=== PATIENT | female | born 1960 | race Caucasian/White ===

== ENCOUNTER 2020-11-07 05:38 | Outpatient (CLI) | payer OTHER ==
[~2020-11-07] VITALS: Ht 157.5 cm; Wt 84.0 kg
== END 2020-11-07 13:09 | disposition home or self-care (01) ==
LOC: PREOP 05:38
PROVIDERS: ATTEND Surgery
DX: Z01.818 Encounter for other preprocedural examination (principal)

== ENCOUNTER 2020-11-14 07:25 | Day surgery (SDC) | payer OTHER ==
[2020-11-14] VITALS (12 sets, daily range): BP systolic 123–176; BP diastolic 57–85
[~2020-11-14] VITALS: Ht 157.5 cm; Wt 84.0 kg
[2020-11-14] MEDS ORDERED: LIDOCAINE/EPI 1%-1:100,000 (XYLOCAINE) 20ML ONE (08:12)
[2020-11-14] MEDS ORDERED: IOPAMIDOL 61% 30 ML (ISOVUE 300) VIAL ONE (08:12)
--- NOTE | 2020-11-14 08:25 | Progress Note-Pre Operative ---
Pre-Operative Progress Note H&P Reviewed The H&P was reviewed, patient examined and no changes noted. Time Seen by Provider: 08:23 Date H&P Reviewed: November 14, 2020 Time H&P Reviewed: 08:23 Pre-Operative Diagnosis: Cholecystitis/cholelithiasis ESTEFANIA MELLO DO November 14, 2020 08:25
[2020-11-14] MEDS ORDERED: HYDROmorphone 2 MG/ML VIAL (DILAUDID) ONE (08:29)
[2020-11-14] MEDS ORDERED: NEOSTIGMINE 3 MG/3 ML VIAL ONE (08:29)
[2020-11-14] MEDS ORDERED: SEVOFLURANE (ULTANE) 15 ML INHAL SOLN ONE (08:29)
[2020-11-14] MEDS ORDERED: proPOfol 200 MG/20 ML (DIPRIVAN) VIAL IV ONE (08:29)
[2020-11-14] MEDS ORDERED: LIDOCAINE PF 2% 5 ML (XYLOCAINE) VIAL ONE (08:29)
[2020-11-14] MEDS ORDERED: ONDANSETRON 4 MG/2 ML (SDV) Z0FRAN ONE (08:29)
[2020-11-14] MEDS ORDERED: GLYCOPYRROLATE 0.2 MG/ML (ROBINUL) 2 ML VIAL ONE (08:29)
[2020-11-14] MEDS ORDERED: ROCURONIUM 10 MG/ML 5 ML SYRINGE IV ONE (08:29)
[2020-11-14] MEDS ORDERED: ceFAZolin 2 GM IV Premixed 50 ML IV ONE (08:30)
[2020-11-14] MEDS ORDERED: MIDAZOLAM 2 MG/2 ML (VERSED) VIAL ONE (08:30)
[2020-11-14] MEDS: LACTATED RINGERS 1,000 ML IV PRN ×2 (08:32→10:00)
[2020-11-14] MEDS ORDERED: ACHD5005 PO (10:07)
--- NOTE | 2020-11-14 10:07 | Progress Note-Post Operative ---
Post-Operative Progess Note Surgeon (s)/Bundle Person (s) Surgeon ESTEFANIA MELLO DO Bundle Person: ron Pre-Operative Diagnosis Cholecystitis/cholelithiasis Post-Operative Diagnosis same Procedure & Operative Findings Date of Procedure 11/14/20 Procedure Performed/Findings PROCEDURE: Laparoscopic cholecystectomy with intraoperative cholangiogram. COMPLICATIONS: None. PROCEDURE: The patient was taken to the operating suite and was prepped and draped in sterile fashion. A surgical pause was performed. Just superior to the umbilicus, a 12 mm incision was made. Dissection was taken down to the fascia, which was then scored and grasped with a Familia and the abdomen was then entered. A 0 Vicryl suture was placed in a [id number]-di-bqqkl fashion and a Juárez trocar was placed and secured. Pneumoperitoneum was achieved. A 5mm trochar place in the subxyphoid and 2 in the right upper quadrant. The gallbladder was then grasped and elevated. The cystic duct, and cystic artery were then dissected out. Clip was placed on the distal portion of the cystic duct which was then partially transected. An arrow catheter was inserted into the duct. The cholangiogram was then performed. No filing defects and contrast made its way into the duodenum. Catheter removed. Clips were placed on proximal portion of the cystic duct and then the duct was then transected. Clips were placed along the proximal and distal portion of the cystic artery which was then transected. Hook cautery was used to dissect the gallbladder from the gallbladder fossa achieving hemostasis. The gallbladder was placed in an Endobag and removed through the 12 mm trocar site. The abdomen was then reinspected. Copious amounts of irrigation were used to irrigate the abdomen and there were no signs of active bleeding. Hemostasis had been achieved. The 12 mm fascial defect was then closed with 0 Vicryl suture that had been placed in a [id number] fashion. The abdomen was then desufflated, the trocars were removed. The abdomen was then washed and dried. The skin was then closed using 4-0 Monocryl in a subcuticular fashion. The abdomen was washed and dried and Skin Affix was place over incisions. Patient tolerated the procedure well without any complications and was taken to the recovery room in stable condition. Dr. Grimes assisted on this case helping to make incisions, close incisions, identify anatomy and hold anatomy out of the way. Anesthesia Type GET Estimated Blood Loss Estimated blood loss (mL): less than 10 ml Specimens/Packing Specimens Removed GB and contents ESTEFANIA MELLO DO November 14, 2020 10:07
--- NOTE | 2020-11-14 10:08 | Discharge Inst-Surgical ---
Discharge Inst-Surgical Depart Medication/Instructions New, Converted or Re-Newed RX: RX Given to Pt/Family Patient Instructions Follow up Appt: Make appointment for 1 week. [phone] Instructions: No lifting greater than 20 pounds. No strenuous activity. May shower in 24 hours, no tub bath or soaking. Use incentive spirometer at home as directed. No Smoking Skin/Wound Care: May remove bandages in am. You need to leave the Dermabond on incision it will fall off on it's own. Symptoms to Report: Appetite Changes, Extremity Discoloration, Numbness/Tingling, Swelling Increased, Bleeding Excessive, Eyesight Changes, Pain Increased, Urine Color Change, Constipation(Persistent), Fever over 101 degree F, Pain/Pressure in chest, Urinating Difficulty, Cough Up/Vomit Blood, Heart Beat Irreg/Pounding, Pain/Pressure in jaw, Cramps in feet or legs, Lightheadedness, Pain/Pressure in shoulder, Diarrhea(Persistent), Memory Changes Suddenly, Questions/Concerns, Weight gain consecutive days, Dizziness/Fainting, Nausea/Vomiting, Shortness of Breath, Weight gain over 2 pounds If questions or concerns contact your physician Or seek help at emergency department. Activity Activity as Tolerated: Yes Activity Instructions: Avoid Stress to Incision Driving Instructions: No Driving/Refer to Diet Discharge Diet: Avoid Fatty Foods, Low Fat/Low Cholesterol Diet After 24 Hours: Clear Liquid if Nauseous If Any Problems/Questions/Issu: Contact Your Physician, Go to Emergency Room Skin/Wound Care Infection Signs and Symptoms: Increased Redness, Foul Odor of Wound, Increased Drainage, Skin Itchy or Has a Rash, Increased Swelling, Temperature Above 101 F Wound Care Comment: heating pad to shoulder and neck tonight for pain Bathing Instructions: Shower Stitches/[place]/Dermabond Dis: Dermabond Ice Pack: Ice On and Off Site ESTEFANIA MELLO DO November 14, 2020 10:08
[2020-11-14] MEDS ORDERED: ONDANSETRON 4 MG/2 ML (SDV) Z0FRAN IVP PRN (10:30)
[2020-11-14] MEDS ORDERED: HYDROmorphone 2 MG/ML VIAL (DILAUDID) IV ONE (10:30)
--- NOTE | 2020-11-14 11:25 | Diagnostic Imaging Report ---
INDICATION: Fluoroscopy during intraoperative cholangiogram. Fluoroscopy was provided in the OR during intraoperative cholangiogram. 13 seconds of fluoroscopic time was utilized. 76 images were obtained demonstrate contrast being injected via the cystic duct remnant. Intrahepatic and extrahepatic bile ducts are opacified. There is no filling defect to suggest retained stone. Contrast flows into the duodenum. IMPRESSION: Fluoroscopy during intraoperative cholangiogram. Dictated by: Dictated on workstation # [id number]
[2020-11-14] MEDS ORDERED: ONDANSETRON 4 MG/2 ML (SDV) Z0FRAN IVP ONE (13:00)
--- NOTE | 2020-11-14 13:20 | Anesthesia-General Post-Op ---
General Patient Condition Mental Status/LOC: Same as Preop Cardiovascular: Satisfactory Nausea/Vomiting: Absent Respiratory: Satisfactory Pain: Controlled Complications: Absent Post Op Complications Complications None Follow Up Care/Instructions Patient Instructions None needed. Anesthesia/Patient Condition Patient Condition Patient is doing well, no complaints, stable vital signs, no apparent adverse anesthesia problems. CURT TOLEDO DO November 14, 2020 13:20
== END 2020-11-14 13:50 | disposition home or self-care (01) ==
LOC: SDC 07:25
PROVIDERS: ATTEND Surgery
DX: K80.12 Calculus of gallbladder with acute and chronic cholecystitis without obstruction (principal); K82.8 Other specified diseases of gallbladder; F17.210 Nicotine dependence, cigarettes, uncomplicated; Z88.8 Allergy status to other drugs, medicaments and biological substances; Z90.710 Acquired absence of both cervix and uterus; Z98.51 Tubal ligation status; Z96.642 Presence of left artificial hip joint; Z82.49 Family history of ischemic heart disease and other diseases of the circulatory system
CPT/HCPCS: 76000; 87081; 88304; 94664

== ENCOUNTER 2020-11-18 14:56 | Emergency (ER) | payer OTHER ==
[~2020-11-18 14:56] MED LIST: ACHD5005 PO
[2020-11-18] MEDS ORDERED: ONDANSETRON 4 MG/2 ML (SDV) Z0FRAN IVP ONE (15:30)
[2020-11-18] MEDS ORDERED: NS IV 1000 ML 1,000 ML IV SCH (15:30)
[2020-11-18 15:37] LABS: CLARITY,URINE CLOUDY; COLOR,URINE DARK YELLOW
[2020-11-18 15:38] LABS: BACTERIA,URINE LARGE /HPF; BILIRUBIN,URINE 2+ (NEGATIVE); GLUCOSE, URINE (UA) NEGATIVE (NEGATIVE); KETONES,URINE 3+ (NEGATIVE); LEUKOCYTE ESTERASE ,URINE NEGATIVE (NEGATIVE); NITRITE,URINE NEGATIVE (NEGATIVE); PH,URINE 6.5 (5-9); PROTEIN,URINE 1+ (NEGATIVE); RBC,URINE 0-2 /HPF; SQUAMOUS EPITHELIAL CELL,UR 25-50 /HPF
[2020-11-18 15:44] LABS: HEMATOCRIT 37 % (35-52); HEMOGLOBIN 12.5 G/DL (11.5-16.0); LYMPHOCYTES % (AUTO) 5 % (12-44); MEAN CORPUSCULAR HEMOGLOBIN 29 PG (25-34); MEAN CORPUSCULAR HGB CONC 34 G/DL (32-36); MEAN CORPUSCULAR VOLUME 85 FL (80-99); MEAN PLATELET VOLUME 10.2 FL (7.4-10.4); NEUTROPHILS % (AUTO) 89 % (42-75); PLATELET COUNT 330 10^3/uL (130-400); WHITE BLOOD COUNT 15.5 10^3/uL (4.3-11.0)
[2020-11-18 15:45] LABS: BASOPHILS % (AUTO) 0 % (0-10); EOSINOPHILS # (AUTO) 0.2 10^3/uL (0.0-0.3); EOSINOPHILS % (AUTO) 1 % (0-10); LYMPHOCYTES # (AUTO) 0.7 X 10^3 (1.0-4.0); MONOCYTES # (AUTO) 0.6 X 10^3 (0.0-1.0); MONOCYTES % (AUTO) 4 % (0-12); NEUTROPHILS # (AUTO) 13.8 X 10^3 (1.8-7.8)
[2020-11-18 15:57] LABS: ALANINE AMINOTRANSFERASE 44 U/L (0-55); ALKALINE PHOSPHATASE 179 U/L (40-136); BILIRUBIN,TOTAL 1.8 MG/DL (0.1-1.0); BUN/CREATININE RATIO 25; CALCIUM 8.8 MG/DL (8.5-10.1); CARBON DIOXIDE 25 MMOL/L (21-32); CHLORIDE 101 MMOL/L (98-107); CREATININE SERUM 0.63 MG/DL (0.60-1.30); GFR ESTIMATED > 60; GLUCOSE 136 MG/DL (70-105); POTASSIUM 3.4 MMOL/L (3.6-5.0); SODIUM 137 MMOL/L (135-145); TOTAL PROTEIN 6.9 GM/DL (6.4-8.2)
[2020-11-18] MEDS: morphine INJ 10 MG/ML 1ML (SYR OR VIAL) IVP STA ×2 (15:57→17:08)
[2020-11-18 15:58] LABS: ALBUMIN 3.3 GM/DL (3.2-4.5); LIPASE 9 U/L (8-78)
[2020-11-18] MEDS ORDERED: IOHEXOL 350 MG/ML 100 ML (OMNIPAQUE 350) VIAL IV ONE (16:00)
[2020-11-18] MEDS ORDERED: HOLD METFORMIN - RECEIVED CONTRAST 20 ML VIAL IV SCH (16:00)
[2020-11-18] MEDS ORDERED: NS 100 ML (IVPB) BAG IV ONE (16:00)
[2020-11-18] MEDS ORDERED: CATHETER FLUSH 10 ML SYR IV PRN (16:00)
[2020-11-18 16:14] LABS: BASOPHILS % (MANUAL) 1 %; LYMPHOCYTES % (MANUAL) 5 %; MONOCYTES % (MANUAL) 2 %; NEUTROPHILS % (MANUAL) 92 %
--- NOTE | 2020-11-18 16:35 | Diagnostic Imaging Report ---
EXAMINATION: CT abdomen and pelvis with intravenous contrast. TECHNIQUE: Multiple contiguous axial images were obtained through the abdomen and pelvis after the uneventful administration of intravenous contrast. All CT scans use one or more of the following dose optimizing techniques: automated exposure control, MA and/or KvP adjustment based on patient size and exam type or iterative reconstruction. HISTORY: Abdominal pain. Constipation. Cholecystectomy on 11/14/2020. COMPARISON: None available. FINDINGS: The heart is unremarkable. The included lung bases demonstrate minimal atelectasis. The gallbladder is surgically absent. Fluid is seen in the gallbladder fossa. The portal vein is patent. The liver, spleen, pancreas, adrenal glands and kidneys have a normal appearance. There is no pathologically enlarged mesenteric or retroperitoneal adenopathy. Nondilated fluid-filled loops of small bowel are seen throughout the abdomen and pelvis. Diverticuli are seen in the sigmoid colon without evidence of acute diverticulitis There is no free air. No acute osseous abnormality. Ureters and bladder are grossly normal. There is no free air, loculated collection or adenopathy in the pelvis. IMPRESSION: 1. Postsurgical changes of cholecystectomy with a small amount of fluid in the gallbladder fossa. Recommend follow-up as indicated. 2. Nondilated fluid-filled loops of small bowel throughout the abdomen and pelvis, which may represent enteritis. No evidence of bowel obstruction. 3. Scattered diverticuli without evidence of acute diverticulitis. Dictated by: Dictated on workstation # [id number]
[2020-11-18] MEDS ORDERED: MAGNESIUM CITRATE 300 ML BTL PO ONE (17:00)
[2020-11-18] MEDS ORDERED: METHYLNALTREXONE 12 MG/0.6 ML (RELISTOR) VIAL SQ ONE (17:00)
[2020-11-18] MEDS ORDERED: KCL 20 MEQ TAB (K-DUR) PO ONE (17:00)
[2020-11-18] MEDS ORDERED: ONDA4TAB11 PO (17:07)
--- NOTE | 2020-11-18 17:08 | ED General ---
General Chief Complaint: Abdominal/GI Problems Stated Complaint: CONSTIPATED | SOB | DARK URINE | LEFT SHOULDER KARL Nursing Triage Note: Had gallbladder out on 11/14. Is complaining of gas pain in shoulder and back rated at 10/10. Almost passed out earlier today due to pain. Has been taking hydrocodone due to pain. Is having dark urine and thinks she is dehydrated. Has not had a bowel movement in 6 days. Nursing Sepsis Screen: No Definite Risk History of Present Illness Date Seen by Provider: November 18, 2020 Time Seen by Provider: 17:02 Initial Comments Patient presenting to the emergency department for evaluation of abdominal pain in the setting of having a laparoscopic cholecystectomy 4 days ago. She says th at the pain has been constant since the surgery and the pain has not changed as it is crampy and generalized. Patient says that she is having severe pain that is making her feel lightheaded and she feels that she is going to pass out from the pain. She said she did not have a bowel movement 2 days before the surgery and she has not had a bowel movement since the surgery so she has not had a bowel movement for 6 days total and she says she is passing minimal gas. She has had nausea and belching but no vomiting fevers chills dysuria hematuria chest pain or shortness of breath. Patient says that she is taking stool softeners but no laxatives. Patient says her surgeon was Dr. Spicer and she called the office 2 days ago and was told to continue with stool softeners. She is in no obvious distress with normal vital signs. Allergies and Home Medications Allergies Coded Allergies: fentanyl (Verified Allergy, Unknown, 11/07/20) Home Medications Hydrocodone Bit/Acetaminophen 1 Tab Tab, 1 TAB PO Q8H PRN for PAIN-MODERATE (5- 7) Prescribed by: ESTEFANIA SPICER on 11/14/20 1007 Patient Home Medication List Home Medication List Reviewed: Yes Review of Systems Review of Systems Constitutional: no symptoms reported EENTM: no symptoms reported Respiratory: no symptoms reported Cardiovascular: no symptoms reported Gastrointestinal: abdominal pain, constipation, nausea Genitourinary: no symptoms reported Musculoskeletal: no symptoms reported Skin: no symptoms reported Psychiatric/Neurological: No Symptoms Reported All Other Systems Reviewed Negative Unless Noted: Yes Past Tzewcxm-Wxztvs-Rcrmyq Hx Patient Social History Alcohol Use: Denies Use Smoking Status: Current Everyday Smoker Type Used: Cigarettes 2nd Hand Smoke Exposure: Yes Recent Infectious Disease Expo: No Recent Hopitalizations: No Seasonal Allergies Seasonal Allergies: Yes Past Medical History Eye Surgery, Hysterectomy, Joint Replacement, Tubal Ligation Respiratory: No Currently Using CPAP: No Currently Using BIPAP: No Cardiac: No Neurological: No [employer] History: Hysterectomy Genitourinary: No Gastrointestinal: Yes Hemorrhoids, Gall Bladder Disease Musculoskeletal: No Endocrine: No HEENT: Yes (HAD CATARACT SURG) Cataract Cancer: Yes Skin Did You Recieve Any Treatments: Yes What Type of Treatment Did You: Surgical Intervention Psychosocial: No 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 oz. kg; 33.86 BMI Method: General Appearance: No Apparent Distress, WD/WN HEENT: PERRL/EOMI Neck: Supple Respiratory: No Respiratory Distress Cardiovascular: Regular Rate, Rhythm Gastrointestinal: Soft, Tenderness (Diffuse nonfocal tenderness with no rebound or guarding) Back: Normal Inspection Extremity: Normal Capillary Refill Neurologic/Psychiatric: Alert, Oriented x3 Skin: Warm/Dry Progress/Results/Core Measures Suspected Sepsis Recent Fever Within 48 Hours: No Infection Criteria Present: None New/Unexplained Altered Menta: No Sepsis Screen: No Definite Risk SIRS Temperature: Pulse: 96 Respiratory Rate: 18 Laboratory Tests 11/18/20 15:20: White Blood Count 15.5H Blood Pressure 140 /80 Mean: 100 Laboratory Tests 11/18/20 15:20: Creatinine 0.63, Platelet Count 330, Total Bilirubin 1.8H Results/Orders Lab Results Laboratory Tests Test 11/18/20 15:10 11/18/20 15:20 Range/Units Urine Color DARK YELLOW Urine Clarity CLOUDY Urine pH 6.5 5-9 Urine Specific [place] 1.015 L 1.016-1.022 Urine Protein 1+ H NEGATIVE Urine Glucose (UA) NEGATIVE NEGATIVE Urine Ketones 3+ H NEGATIVE Urine Nitrite NEGATIVE NEGATIVE Urine Bilirubin 2+ H NEGATIVE Urine Urobilinogen 1.0 < = 1.0 MG/DL Urine Leukocyte Esterase NEGATIVE NEGATIVE Urine RBC (Auto) TRACE-I NEGATIVE Urine RBC 0-2 /HPF Urine WBC 5-10 H /HPF Urine Squamous Epithelial Cells 25-50 H /HPF Urine Crystals NONE /LPF Urine Bacteria LARGE H /HPF Urine Casts NONE /LPF Urine Mucus MODERATE H /LPF Urine Culture Indicated YES White Blood Count 15.5 H 4.3-11.0 10^3/uL Red Blood Count 4.39 4.35-5.85 10^6/uL Hemoglobin 12.5 11.5-16.0 G/DL Hematocrit 37 35-52 % Mean Corpuscular Volume 85 80-99 FL Mean Corpuscular Hemoglobin 29 25-34 PG Mean Corpuscular Hemoglobin Concent 34 32-36 G/DL Red Cell Distribution Width 14.6 H 10.0-14.5 % Platelet Count 330 130-400 10^3/uL Mean Platelet Volume 10.2 7.4-10.4 FL Immature Granulocyte % (Auto) 1 % Neutrophils (%) (Auto) 89 H 42-75 % Lymphocytes (%) (Auto) 5 L 12-44 % Monocytes (%) (Auto) 4 0-12 % Eosinophils (%) (Auto) 1 0-10 % Basophils (%) (Auto) 0 0-10 % Neutrophils # (Auto) 13.8 H 1.8-7.8 X 10^3 Lymphocytes # (Auto) 0.7 L 1.0-4.0 X 10^3 Monocytes # (Auto) 0.6 0.0-1.0 X 10^3 Eosinophils # (Auto) 0.2 0.0-0.3 10^3/uL Basophils # (Auto) 0.0 0.0-0.1 10^3/uL Immature Granulocyte # (Auto) 0.1 0.0-0.1 10^3/uL Neutrophils % (Manual) 92 % Lymphocytes % (Manual) 5 % Monocytes % (Manual) 2 % Basophils % (Manual) 1 % Percent Immature Platelet Fraction 2.6 0.0-7.6 % Sodium Level 137 135-145 MMOL/L Potassium Level 3.4 L 3.6-5.0 MMOL/L Chloride Level 101 98-107 MMOL/L Carbon Dioxide Level 25 21-32 MMOL/L Anion Gap 11 5-14 MMOL/L Blood Urea Nitrogen 16 7-18 MG/DL Creatinine 0.63 0.60-1.30 MG/DL Estimat Glomerular Filtration Rate > 60 BUN/Creatinine Ratio 25 Glucose Level 136 H 70-105 MG/DL Calcium Level 8.8 8.5-10.1 MG/DL Corrected Calcium 9.4 8.5-10.1 MG/DL Total Bilirubin 1.8 H 0.1-1.0 MG/DL Aspartate Amino Transf (AST/SGOT) 26 5-34 U/L Alanine Aminotransferase (ALT/SGPT) 44 0-55 U/L Alkaline Phosphatase 179 H 40-136 U/L Total Protein 6.9 6.4-8.2 GM/DL Albumin 3.3 3.2-4.5 GM/DL Lipase 9 8-78 U/L My Orders Orders - DM GALICIA DO Cbc With Automated Diff (11/18/20:21) Comprehensive Metabolic Panel (11/18/20 15:21) Lipase (11/18/20 15:21) Ua Culture If Indicated (11/18/20 15:21) Ct Abdomen/Pelvis W (11/18/20 15:21) Ns Iv 1000 Ml (Sodium Chloride 0.9%) (11/18/20 15:30) Ondansetron Injection (Zofran Injectio (11/18/20 15:30) Morphine Injection (Morphine Injection (11/18/20 15:21) Urine Culture (11/18/20 15:10) Manual Differential (11/18/20 15:20) Iohexol Injection (Omnipaque 350 Mg/Ml 1 (11/18/20 16:00) Di Iv Start (Assessment) .IV start (11/18/20 15:58) Received Contrast (Hold Metformin- Contr (11/18/20 16:00) Sodium Chloride Flush (Catheter Flush Sy (11/18/20 16:00) Ns (Ivpb) (Sodium Chloride 0.9% Ivpb Bag (11/18/20 16:00) Methylnaltrexone Injection (Relistor Inj (11/18/20 17:00) Magnesium Citrate Oral Soln (Citrate Of (11/18/20 17:00) Potassium Chloride (Tablet) (K Dur Table (11/18/20 17:00) Medications Given in ED Current Medications Medications Dose Ordered Sig/Lynn Route Start Time Stop Time Status Last Admin Dose Admin Iohexol 100 ml ONCE ONCE IV 11/18/20 16:00 11/18/20 16:01 DC 11/18/20 16:11 100 ML Ondansetron HCl 4 mg ONCE ONCE IVP 11/18/20 15:30 11/18/20 15:31 DC 11/18/20 15:57 4 MG Sodium Chloride 100 ml ONCE ONCE IV 11/18/20 16:00 11/18/20 16:01 DC 11/18/20 16:11 80 ML Vital Signs/I&O 11/18/20 15:10 Temp 36.6 Pulse 96 Resp 18 B/P (MAP) 140/80 (100) Pulse Ox 98 Capillary Refill : Less Than 3 Seconds Blood Pressure Mean: 100 Progress Note : Progress Note Patient with nonspecific abdominal pain and no surgical findings on CT. she does have mild leukocytosis but no fevers and no focal pain rebound or guarding. There is no signs of obstruction or other surgical pathology on the CT. patient says her pain and nausea have improved significantly and she was able to drink fluids by mouth with no difficulty. I told her if she has not had a bowel movement in 6 days we can try giving her magnesium citrate here and that she can try laxatives at home and she should call her surgeon tomorrow to let them know what is going on. Patient aware and agreeable with plan for discharge and verbalized understanding of the need for short-term follow-up and strict ED return precautions discussed include worsening pain fevers vomiting or other general concerns. Departure Impression Primary Impression: Abdominal pain Qualified Codes: R10.84 - Generalized abdominal pain Additional Impressions: Nausea alone Constipation Qualified Codes: K59.00 - Constipation, unspecified Leukocytosis Disposition: HOME, SELF-CARE Condition: Stable Departure-Patient Inst. Referrals: MC LAKHANI MD (PCP/Family) Primary Care Physician Patient Instructions: Constipation, Adult (DC) Add. Discharge Instructions: Take 1 cap miralax 2 times daily until start having normal bowel movements. All discharge instructions reviewed with patient and/or family. Voiced understanding. Scripts Ondansetron (Ondansetron Odt) 4 Mg Tab.rapdis 4 MG PO Q6H PRN for NAUSEA/VOMITING, #14 TAB 0 Refills Prov: DM GALICIA DO 11/18/20 DM GALICIA DO November 18, 2020 17:08
[2020-11-18 18:10] VITALS: BP 122/72
[2020-11-18] MEDS ORDERED: RX-ONDANSETRON 4 MG ODT (ZOFRAN) PPK #4 PO PRN (18:15)
== END 2020-11-18 18:10 | disposition home or self-care (01) ==
LOC: EDUNIT# 14:56 → ER FS 14:59
DX: R10.84 Generalized abdominal pain (principal); R11.0 Nausea; K59.00 Constipation, unspecified; D72.829 Elevated white blood cell count, unspecified; F17.210 Nicotine dependence, cigarettes, uncomplicated; Z88.8 Allergy status to other drugs, medicaments and biological substances
CPT/HCPCS: 36415; 74177; 80053; 81000; 83690; 85007; 85027; 87088

== ENCOUNTER → 2021-12-17 | Outpatient (CLI) | payer OTHER ==
[~2021-12-17] MED LIST changes: +ONDA4TAB11 PO
== END ==
LOC: CARD 12:28
PROVIDERS: ATTEND Family Medicine
DX: R00.0 Tachycardia, unspecified (principal)
CPT/HCPCS: 93225; 93226

== ENCOUNTER 2022-01-31 20:18 | Emergency (ER) | payer SELFPAY ==
[2022-01-31 20:38] LABS: BASOPHILS % (AUTO) 0 % (0-10); EOSINOPHILS # (AUTO) 0.2 10^3/uL (0.0-0.3); EOSINOPHILS % (AUTO) 2 % (0-10); HEMATOCRIT 40 % (35-52); HEMOGLOBIN 13.5 g/dL (11.5-16.0); LYMPHOCYTES # (AUTO) 1.9 10^3/uL (1.0-4.0); LYMPHOCYTES % (AUTO) 18 % (12-44); MEAN CORPUSCULAR HEMOGLOBIN 29 pg (25-34); MEAN CORPUSCULAR HGB CONC 34 g/dL (32-36); MEAN CORPUSCULAR VOLUME 85 fL (80-99); MEAN PLATELET VOLUME 10.3 fL (9.0-12.2); MONOCYTES # (AUTO) 0.7 10^3/uL (0.0-1.0); MONOCYTES % (AUTO) 7 % (0-12); NEUTROPHILS # (AUTO) 7.9 10^3/uL (1.8-7.8); NEUTROPHILS % (AUTO) 73 % (42-75); PLATELET COUNT 280 10^3/uL (130-400); WHITE BLOOD COUNT 10.8 10^3/uL (4.3-11.0)
--- NOTE | 2022-01-31 20:41 | ED Cardiac General ---
History of Present Illness General Stated Complaint: HIGH BP, HIGH PULSE Source: patient Exam Limitations: no limitations History of Present Illness Date Seen by Provider: Jan 31, 2022 Time Seen by Provider: 20:21 Initial Comments 61-year-old female with past medical history of GERD coming in due to feelings of heart palpitations and elevated blood pressure. Occurred a couple hours ago and lasted several minutes. This has happened numerous times in the past and has been caught on the Holter monitor. She is been told she does have extra heartbeats. She is unsure if they were PVCs or, or what they were called. She is sure she has never been told that she has A. fib or SVT. Denies any chest discomfort, but did have a moment of sharp discomfort in her left scapula that was very brief and gone. Denies any shortness of breath, fever, cough, abdo ailin pain, nausea, vomiting, diarrhea, weakness, numbness, or any other concerns. She has been at her baseline for over an hour now. She says belching helps this and her doctor started her on a PPI which helped limit the number times is occurred. Allergies and Home Medications Allergies Coded Allergies: fentanyl (Verified Allergy, Unknown, 11/07/20) Patient Home Medication List Home Medication List Reviewed: Yes Hydrocodone Bit/Acetaminophen (HYDROcodone/APAP 5 MG/325 MG TAB) 1 Tab Tab, 1 TAB PO Q8H PRN for PAIN-MODERATE (5-7) Prescribed by: ESTEFANIA MELLO on 11/14/20 1007 Ondansetron (Ondansetron Odt) 4 Mg Tab.rapdis, 4 MG PO Q6H PRN for NAUSEA/VOMITING Prescribed by: DM GALICIA on 11/18/20 1707 Review of Systems Review of Systems Constitutional: No fever EENTM: No Blurred Vision Respiratory: Denies Cough Cardiovascular: Denies Chest Pain; Palpitations Gastrointestinal: Denies Abdominal Pain Genitourinary: Denies Burning Musculoskeletal: no symptoms reported Skin: no symptoms reported Psychiatric/Neurological: No Symptoms Reported Endocrine: No Symptoms Reported Hematologic/Lymphatic: No Symptoms Reported All Other Systems Reviewed Negative Unless Noted: Yes Past Iizahtx-Yhxkni-Axongx Hx Patient Social History Tobacco Use?: Yes Tobacco type used: Cigarettes Seasonal Allergies Seasonal Allergies: Yes Past Medical History Surgeries: Yes Eye Surgery, Hysterectomy, Joint Replacement, Tubal Ligation Respiratory: No Currently Using CPAP: No Currently Using BIPAP: No Cardiac: No 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 oz. kg; 33.86 BMI Method: General Appearance: No Apparent Distress, WD/WN HEENT: PERRL/EOMI, Normal ENT Inspection, Pharynx Normal Neck: Full Range of Motion, Normal Inspection, Non Tender, Supple Respiratory: Chest Non Tender, Lungs Clear, Normal Breath Sounds, No Accessory Muscle Use, No Respiratory Distress Cardiovascular: Regular Rate, Rhythm, No Edema, Normal Peripheral Pulses Gastrointestinal: Normal Bowel Sounds, Non Tender, Soft; No Distended, No Guarding Extremity: Normal Capillary Refill, Normal Inspection, Normal Range of Motion, Non Tender, No Calf Tenderness, No Pedal Edema Neurologic/Psychiatric: Alert, No Motor/Sensory Deficits, Normal Mood/Affect Skin: Normal Color, Warm/Dry Lymphatic: No Adenopathy Progress/Results/Core Measures Results/Orders Lab Results Laboratory Tests Test 01/31/22 20:35 Range/Units White Blood Count 10.8 4.3-11.0 10^3/uL Red Blood Count 4.70 3.80-5.11 10^6/uL Hemoglobin 13.5 11.5-16.0 g/dL Hematocrit 40 35-52 % Mean Corpuscular Volume 85 80-99 fL Mean Corpuscular Hemoglobin 29 25-34 pg Mean Corpuscular Hemoglobin Concent 34 32-36 g/dL Red Cell Distribution Width 14.3 10.0-14.5 % Platelet Count 280 130-400 10^3/uL Mean Platelet Volume 10.3 9.0-12.2 fL Immature Granulocyte % (Auto) 0 % Neutrophils (%) (Auto) 73 42-75 % Lymphocytes (%) (Auto) 18 12-44 % Monocytes (%) (Auto) 7 0-12 % Eosinophils (%) (Auto) 2 0-10 % Basophils (%) (Auto) 0 0-10 % Neutrophils # (Auto) 7.9 H 1.8-7.8 10^3/uL Lymphocytes # (Auto) 1.9 1.0-4.0 10^3/uL Monocytes # (Auto) 0.7 0.0-1.0 10^3/uL Eosinophils # (Auto) 0.2 0.0-0.3 10^3/uL Basophils # (Auto) 0.0 0.0-0.1 10^3/uL Immature Granulocyte # (Auto) 0.0 0.0-0.1 10^3/uL My Orders Orders - ARETHA LOZANO MD Cbc With Automated Diff (01/31/22 20:34) Magnesium (01/31/22 20:34) Chest 1 View Ap/Pa Only (01/31/22 20:34) Ekg Tracing (01/31/22 20:34) Comprehensive Metabolic Panel (01/31/22 20:34) O2 (01/31/22 20:34) Monitor-Rhythm Ecg Trace Only (01/31/22 20:34) Troponin I Fs (01/31/22 20:34) Antacid Suspension (Mylanta Suspension (01/31/22 20:45) Famotidine Tablet (Pepcid Tablet) (01/31/22 20:45) Medications Given in ED Current Medications Medications Dose Ordered Sig/Lynn Route Start Time Stop Time Status Last Admin Dose Admin Al Hydrox/Mg Hydrox/Simethicone 30 ml ONCE ONCE PO 01/31/22 20:45 01/31/22 20:46 DC 01/31/22 20:41 30 ML Famotidine 20 mg ONCE ONCE PO 01/31/22 20:45 01/31/22 20:46 DC 01/31/22 20:40 20 MG Progress Progress Note : Progress Note 61-year-old female with above history coming in due to palpitations. ABCs were intact and vitals were stable on presentation. She was placed on the cardiac cath lab radiology technologist and she is sinus rhythm, confirmed with EKG. She says when she felt her pulse earlier it felt like it was around 120 have blood pressure was around 130/100. Typically she is 120/80 and does not take blood pressure medication. She said the feeling of heart racing lasted several minutes and then abated. She says she has had episodes of this caught by Holter monitor and has never been anything significant other than a few "extra beats". The patient did st ates she was feeling some like it was racing while I was in the room. At that time her heart rate with sinus in the 70s on the monitor. We will do a cardiac work-up out of abundance of caution. We will do a GI cocktail since she said this is helped in the past. I have personally reviewed her Holter monitor results from last month. She had some PVCs and had one episode logged where she felt the same symptoms as today. During that time her heart rate was in the 60's and sinus. Initial ECG Impression Date: Jan 31, 2022 Initial ECG Impression Time: 20:28 Initial ECG Rate: 77 Initial ECG Rhythm: Normal Sinus Comment Narrow QRS, normal axis, no significant ST changes or T wave abnormalities, QTC 436 Diagnostic Imaging Diagonstic Imaging: Xray Plain Films/CT/US/NM/MRI: chest Comments NAME: FADUMO DACOSTA [facility] REC#: [id number] PT STATUS: REG ER : 1960 PHYSICIAN: ARETHA LOZANO MD ADMIT DATE: 01/31/22/ER FS Signed Date of Exam:01/31/22 CHEST 1 VIEW AP/PA ONLY INDICATION: Chest pain and palpitations. COMPARISON: None available. FINDINGS: The lungs appear clear without focal airspace opacities or consolidation. There are no findings of an effusion. There is no evidence of a pneumothorax. Heart size and mediastinal contours appear appropriate. Pulmonary vascularity appears within normal limits. There is no acute or suspicious osseous abnormality demonstrated. IMPRESSION: No radiographic evidence of an acute cardiopulmonary process. Dictated by: Dictated on workstation # [id number] Dict: 01/31/222044 Trans: 01/31/222044 [facility] [id number] Interpreted by: AMANDO MANCERA MD Electronically signed by: AMANDO MANCERA MD 01/31/222044 Departure Impression Primary Impression: Palpitations Disposition: 01 HOME, SELF-CARE Condition: Improved Departure-Patient Inst. Referrals: MC LAKHANI MD (PCP/Family) Primary Care Physician Patient Instructions: Palpitations Add. Discharge Instructions: Your work-up is reassuring and it does not appear like you are having any type of heart attack. I would just monitor your symptoms, take your blood pressure regularly and read in the log. If her blood pressure continues to be elevated then discussed with your doctor about adding a medication for this. If you begin having crushing chest pain, severe shortness of breath, or any other concerns then please come back to the ER. Work/School Note: Work Release Form Date Seen in the Emergency Department: Jan 31, 2022 Return to Work: Feb 01, 2022 Restrictions: No Restrictions ARETHA LOZANO MD Jan 31, 2022 20:41
[2022-01-31] MEDS ORDERED: FAMOTIDINE 20 MG (PEPCID) TABLET PO ONE (20:45)
[2022-01-31] MEDS ORDERED: ANTACID SUSP 30 ML UDC (MYLANTA) PO ONE (20:45)
--- NOTE | 2022-01-31 20:47 | Diagnostic Imaging Report ---
INDICATION: Chest pain and palpitations. COMPARISON: None available. FINDINGS: The lungs appear clear without focal airspace opacities or consolidation. There are no findings of an effusion. There is no evidence of a pneumothorax. Heart size and mediastinal contours appear appropriate. Pulmonary vascularity appears within normal limits. There is no acute or suspicious osseous abnormality demonstrated. IMPRESSION: No radiographic evidence of an acute cardiopulmonary process. Dictated by: Dictated on workstation # [id number]
[2022-01-31 20:58] LABS: ALBUMIN 4.5 GM/DL (3.2-4.5); BILIRUBIN,TOTAL 0.2 MG/DL (0.1-1.0); CALCIUM 9.6 MG/DL (8.5-10.1); CREATININE SERUM 0.8 MG/DL (0.60-1.30); MAGNESIUM 1.9 MG/DL (1.6-2.4); POTASSIUM 3.7 MMOL/L (3.6-5.0); TOTAL PROTEIN 7.3 GM/DL (6.4-8.2)
[2022-01-31 21:07] VITALS: BP 138/63
== END 2022-01-31 21:10 | disposition home or self-care (01) ==
LOC: EDUNIT# 20:18 → ER FS 20:19
DX: R00.2 Palpitations (principal); Z87.19 Personal history of other diseases of the digestive system
CPT/HCPCS: 36415; 71045; 80053; 83735; 84484; 85025; 93005; 93041